=== PATIENT | female | born 1985 | race Caucasian/White ===

== ENCOUNTER 2022-09-16 18:06 | Outpatient (CLI) | payer OTHER, SELFPAY | END 2022-09-16 18:07 | disposition home or self-care (01) | PROVIDERS: PCP Family Medicine; Visit Provider Registered Nurse | DX: Z01.419 Encounter for gynecological examination (general) (routine) without abnormal findings (principal); Z13.6 Encounter for screening for cardiovascular disorders; Z13.1 Encounter for screening for diabetes mellitus | CPT/HCPCS: 80061; 82947 ==

== ENCOUNTER 2023-11-27 09:45 | Outpatient (CLI) | payer OTHER, SELFPAY ==
--- NOTE | 2023-11-27 10:00 | CRLHL7_ITS ---
For Patients: As a result of the Century Cures Act, medical imaging exams and procedure reports are released immediately into your electronic medical record. You may view this report before your referring provider. If you have questions, please contact your health care provider. INDICATION: Urinary calculus. TECHNIQUE: CT abdomen and pelvis acquired without IV contrast. COMPARISON: None. FINDINGS: Lower chest: Unremarkable. Liver: Unremarkable. Normal in size and attenuation. No suspicious masses. Gallbladder and bile ducts: Status post cholecystectomy. Pancreas: Unremarkable. No mass or inflammation. Spleen: Unremarkable. Normal in size. No masses. Adrenal glands: Unremarkable. No nodules. Kidneys, ureters and urinary bladder: 2 millimeter nonobstructing right renal stone. Unremarkable left kidney. No ureteral stone or hydronephrosis. Unremarkable urinary bladder. GI tract: Unremarkable. Normal in caliber. No sign of mass or inflammation. Normal appendix. Vasculature: Abdominal aorta is normal in caliber. Lymph nodes: No lymphadenopathy. Peritoneum: Unremarkable. No free air or significant free fluid. Abdominal Wall: No abdominal wall mass or hernia. Pelvis: 4.2 cm right ovarian cyst, not fully characterized. Follow-up pelvic ultrasound in 6-12 weeks is recommended. Unremarkable uterus and left adnexa. Bones: Unremarkable for age. IMPRESSION: 1. Right nephrolithiasis. 2. 4.2 cm right ovarian cyst, not fully characterized. Follow-up evaluation with pelvic ultrasound in 6-12 weeks is recommended. Please note that all CT scans at this facility use dose modulation, iterative reconstruction, and/or weight-based dosing when appropriate to reduce radiation dose to as low as reasonably achievable. Dictated by Pj Braga MD @ 11/27/2023 2:53:08 PM (Electronically Signed)
== END 2023-11-27 09:46 | disposition home or self-care (01) ==
LOC: CT 09:45
PROVIDERS: PCP Family Medicine; Visit Provider Internal Medicine Nephrology
DX: N20.9 Urinary calculus, unspecified (principal); N20.0 Calculus of kidney; N83.201 Unspecified ovarian cyst, right side
CPT/HCPCS: 74176

== ENCOUNTER 2023-12-25 13:55 | Outpatient (CLI) | payer OTHER, SELFPAY | END 2023-12-25 13:56 | disposition home or self-care (01) | LOC: NFLDREF 12-26 06:08 | PROVIDERS: PCP Family Medicine; Referring Provider Family Medicine; Visit Provider Internal Medicine Nephrology | DX: N20.9 Urinary calculus, unspecified (principal) | CPT/HCPCS: 80069; 84550 ==

== ENCOUNTER 2023-12-29 07:00 | Outpatient (CLI) | payer OTHER, SELFPAY | END 2023-12-29 07:01 | disposition home or self-care (01) | LOC: NFLDREF 01-03 02:46 | PROVIDERS: PCP Family Medicine; Referring Provider Family Medicine; Visit Provider Internal Medicine Nephrology | DX: N20.9 Urinary calculus, unspecified (principal); N20.0 Calculus of kidney | CPT/HCPCS: 82340; 82436; 82507; 83735; 83945; 83986; 84105; 84133; 84300; 84392; 84560 ==

== ENCOUNTER 2024-01-06 14:46 | Outpatient (CLI) | payer OTHER, SELFPAY ==
--- NOTE | 2024-01-06 15:00 | CRLHL7_ITS ---
For Patients: As a result of the Century Cures Act, medical imaging exams and procedure reports are released immediately into your electronic medical record. You may view this report before your referring provider. If you have questions, please contact your health care provider. INDICATION: Follow-up CT COMPARISON: CT 11/27/2023 TECHNIQUE: 2D lam scale and color Doppler images were acquired of the pelvis using a transabdominal and transvaginal approach. FINDINGS: Sonographic images demonstrate a normal size and smooth outer contour of the uterus. Uterus measures 7.3 cm in length by 4.0 cm in AP diameter by 5.0 cm in transverse dimension. The myometrium has a normal uniform echotexture. The endometrial lining appears normal and measures 3.5 mm in composite thickness. The right ovary measures 3.0 x 1.4 x 2.3 cm in size and the left ovary measures 2.9 x 2.0 x 2.6 cm. The ovaries demonstrate normal arterial and venous blood flow on color Doppler analysis. There are no suspicious fluid collections within the cul-de-sac. IMPRESSION: Normal pelvic ultrasound. No right ovarian cyst. Dictated by Gautam Fox MD @ 01/08/2024 12:34:59 PM (Electronically Signed)
== END 2024-01-06 14:47 | disposition home or self-care (01) ==
LOC: US 14:46
PROVIDERS: PCP Family Medicine; Visit Provider Internal Medicine Nephrology
DX: N83.209 Unspecified ovarian cyst, unspecified side (principal)
CPT/HCPCS: 76830; 76856

== ENCOUNTER 2025-02-20 08:03 | Outpatient (CLI) | payer OTHER, SELFPAY ==
--- NOTE | 2025-02-20 08:15 | CRLHL7_ITS ---
For Patients: As a result of the Century Cures Act, medical imaging exams and procedure reports are released immediately into your electronic medical record. You may view this report before your referring provider. If you have questions, please contact your health care provider. BILATERAL DIGITAL SCREENING MAMMOGRAM WITH COMPUTER-AIDED DETECTION AND TOMOSYNTHESIS CLINICAL HISTORY: Routine screening exam. COMPARISON: None TECHNIQUE: Digital mammogram in CC and MLO projections including computer-aided detection (CAD). Tomosynthesis was used in this interpretation. BREAST COMPOSITION: The breasts are heterogeneously dense, which may obscure small masses. FINDINGS: RIGHT Breast: 1.2 cm nodular density 6 o`clock 6 cm from the nipple. LEFT Breast: No suspicious findings. IMPRESSION: RIGHT breast asymmetry/mass. RECOMMENDATIONS: Right breast ultrasound recommended. The [facility] will contact the patient. A lay language report of this examination will be provided to the patient. BI-RADS Category 0: Incomplete: Need Additional Imaging Evaluation Dictated by Gautam Fox MD @ 02/20/2025 9:02:18 AM (Electronically Signed)
== END 2025-02-20 08:04 | disposition home or self-care (01) ==
PROVIDERS: PCP Family Medicine; Visit Provider Registered Nurse
DX: Z12.31 Encounter for screening mammogram for malignant neoplasm of breast (principal); N63.10 Unspecified lump in the right breast, unspecified quadrant; R92.333 Mammographic heterogeneous density, bilateral breasts
CPT/HCPCS: 77063; 77067

== ENCOUNTER 2025-02-23 08:00 | Outpatient (CLI) | payer OTHER, SELFPAY ==
--- NOTE | 2025-02-23 08:15 | CRLHL7_ITS ---
For Patients: As a result of the Cures Act, medical imaging exams and procedure reports are released immediately into your electronic medical record. You may view this report before your referring provider. If you have questions, please contact your health care provider. RIGHT BREAST ULTRASOUND CLINICAL HISTORY: RIGHT breast nodule. COMPARISON: Mammogram 02/20/2025. TECHNIQUE: Real-time ultrasound imaging of RIGHT breast with imaging documentation. Scanning was performed by both the technologist and the radiologist. FINDINGS: Targeted ultrasound RIGHT breast 6-7 o`clock 6 cm from the nipple performed. At 7 o`clock 6 cm from the nipple there is a circumscribed anechoic cyst with increased through-transmission which measures 5 x 3 x 5 millimeters. No suspicious findings. IMPRESSION: Benign cyst RIGHT breast 7 o`clock 6 cm from the nipple measuring 5 millimeters. No evidence of malignancy. RECOMMENDATIONS: Routine screening mammography. Results and recommendations were discussed with the patient at the time of the exam. A lay language report of this examination will be provided to the patient. BI-RADS Category 2: Benign appearance or behavior Dictated by Gautam Fox MD @ 02/23/2025 9:21:01 AM jj/Dictated by: Gautam Fox MD @ 02/23/2025 9:21:00 AM (Electronically Signed)
== END 2025-02-23 08:01 | disposition home or self-care (01) ==
LOC: US 08:01
PROVIDERS: PCP Family Medicine; Visit Provider Registered Nurse
DX: N63.10 Unspecified lump in the right breast, unspecified quadrant (principal); N60.01 Solitary cyst of right breast; R92.8 Other abnormal and inconclusive findings on diagnostic imaging of breast
CPT/HCPCS: 76642